=== PATIENT | male | born 1950 | race Caucasian/White ===

== ENCOUNTER → 2020-03-27 | Outpatient (CLI) | payer MEDICARE, OTHER ==
--- NOTE | 2020-03-27 11:41 | PFTRPT ---
Site: [facility], [address] [place] [address], [id number] ID: [id number] Name: ANAHY BECERRA Visit Date: 03/27/2020 Second ID: [id number] Referring Doctor: SEAN JOHNSON DO Reviewing Doctor: Esequiel Madison MD Pearler: Qing Winchester Age: 69 : 1950 Sex: Male Race: Height: 68.00 Inches Weight: 161.00 Lbs BSA: 1.86 Order IDs: [id number] Requested Test(s): <RESP-PFT.DLCO> Diagnosis: J44.9 test meet the ATS standards for acceptability and repeatability. Pt was given four puffs of albuterol for post bronchodilator. Review Status: Not Reviewed Pre-Bronch Post-Bronch Pred Actual %Pred Actual %Chng SPIROMETRY FVC (L) 4.08 3.30 80 3.93 18 FEV1 (L) 2.99 1.16 38 1.39 20 FEV1/FVC (%) 74 35 47 35 1 FEF 25% (L/sec) 6.56 0.98 14 1.36 39 FEF 50% (L/sec) 3.87 0.39 10 0.57 45 FEF 75% (L/sec) 1.06 0.19 17 0.29 54 FEF 25-75% (L/sec) 2.28 0.35 15 0.50 42 FEF Max (L/sec) 7.89 1.70 21 2.70 58 FIVC (L) 2.77 2.52 -9 FIF 50% (L/sec) 4.45 2.50 56 3.15 25 FIF Max (L/sec) 2.55 3.18 24 MVV (L/min) 121 40 33 Expiratory Time (sec) 12.05 15.69 30 Back Extrap Vol (L) 0.03 0.03 -9 Time To FEFmax (sec) 0.123 0.065 -47 LUNG VOLUMES SVC (L) 4.27 3.37 78 IC (L) 3.13 1.83 58 ERV (L) 1.14 1.54 135 TGV (L) 3.49 6.15 176 RV (Pleth) (L) 2.35 4.61 196 TLC (Pleth) (L) 6.62 7.98 120 RV/TLC (Pleth) (%) 36 58 160 DIFFUSION DLCOunc (ml/min/mmHg) 25.24 13.99 55 DLCOcor (ml/min/mmHg) 25.24 14.03 55 DL/VA (ml/min/mmHg/L) 3.81 2.85 74 VA (L) 6.62 4.92 74 BHT (sec) 11.24 IVC (L) 2.87 TLC (SB) (L) 5.07 AIRWAYS RESISTANCE Raw (cmH2O/L/s) 1.45 2.87 198 Gaw (L/s/cmH2O) 1.03 0.35 33 sRaw (cmH2O*s) 4.76 18.12 380 sGaw (1/cmH2O*s) 0.20 0.06 27 BLOOD GASES Hgb (gm/dL) 14.5
== END ==
LOC: M CARPUL 03-13 14:55
PROVIDERS: ATTEND Family Medicine
DX: J44.9 Chronic obstructive pulmonary disease, unspecified (principal)

== ENCOUNTER → 2020-06-24 | Outpatient (CLI) | payer MEDICARE, OTHER ==
--- NOTE | 2020-07-16 11:59 | REP ---
LOW-DOSE LUNG SCREENING CT CLINICAL: High risk factors. COMPARISON: 02/09/2008. FINDINGS: The bilateral lung [place] are well aerated and moderate/early advanced emphysematous changes are noted. No consolidation. No significant nodule or mass. No effusion. Tracheobronchial tree is patent. Mediastinum demonstrates atherosclerotic changes of the thoracic aorta. IMPRESSION: 1. Moderate/early advanced emphysematous disease. 2. No acute nodule or mass. 3. Lung-RADS Category 1. Consider annual low-dose CT evaluation/follow-up. MTDD
== END ==
LOC: M RAD 11:02
PROVIDERS: ATTEND Family Medicine
DX: Z12.2 Encounter for screening for malignant neoplasm of respiratory organs (principal); Z87.891 Personal history of nicotine dependence; J43.9 Emphysema, unspecified

== ENCOUNTER → 2021-09-15 | Outpatient (CLI) | payer MEDICARE, OTHER ==
[2021-09-16 14:33] LABS: FOLATE 19.1 NG/ML
== END ==
LOC: M WUC 11:08
PROVIDERS: ATTEND Nurse Practitioner Family
DX: D75.89 Other specified diseases of blood and blood-forming organs (principal)

== ENCOUNTER → 2021-10-14 | Outpatient (CLI) | payer MEDICARE, OTHER ==
--- NOTE | 2021-10-14 13:43 | REP ---
INDICATION: TOBACCO,DEPEND COMPARISON: 06/24/2020 TECHNIQUE: Axial noncontrast images from the thoracic inlet to the upper abdomen using low-dose lung screening technique (LDCT). FINDINGS: Lung [place] demonstrate moderate emphysematous changes with bronchiectasis. No acute consolidation, suspicious nodule or mass. No effusion. No pneumothorax. Tracheobronchial tree is patent. No obvious adenopathy. Mediastinum again demonstrates atherosclerotic changes to the thoracic aorta and coronary arteries without aortic aneurysm or cardiomegaly. IMPRESSION: Lung-RADS category 1. Management recommendations include annual low-dose CT surveillance. Moderate emphysematous disease. <Electronically signed by Adam Delgado > 10/14/21 [id number]
== END ==
LOC: M RAD 10:49
PROVIDERS: ATTEND Nurse Practitioner Family
DX: Z12.2 Encounter for screening for malignant neoplasm of respiratory organs (principal); J43.9 Emphysema, unspecified; F17.210 Nicotine dependence, cigarettes, uncomplicated

== ENCOUNTER → 2023-01-08 | Outpatient (CLI) | payer MEDICARE, OTHER | LOC: M RAD 10:51 | PROVIDERS: ATTEND Student in an Organized Health Care Education/Training Program | DX: F17.210 Nicotine dependence, cigarettes, uncomplicated (principal) ==

== ENCOUNTER 2023-11-19 10:51 | Day surgery (SDC) | payer MEDICARE, OTHER ==
[~2023-11-19] VITALS: Ht 172.7 cm; Wt 77.4 kg
[~2023-11-19 10:51] MED LIST: ADVA115A INH; ALLO100T PO; ATEN50TA2 PO; ERGO500029 PO; FLUT12AE6 INH; LIDOCAINE 2% 100MG/5ML SDV (FOR ANES.) As Ordered ONE; LORA-243 PO; NS 1,000 ML IV ONE; PROA1AER2 INH; ROSU40TA4 PO; SPIR1CAP INH; VALS1TAB66 PO; VITMTA PO; propofoL 200 MG/20 ML VIAL As Ordered ONE
[2023-11-19 12:25] VITALS: TEMP 97.9
[2023-11-19 12:40] VITALS: BP 145/69; O2SAT 99
== END 2023-11-19 12:59 | disposition home or self-care (01) ==
LOC: M OPP 10:51
PROVIDERS: ATTEND Internal Medicine Gastroenterology
DX: K64.4 Residual hemorrhoidal skin tags (principal); K64.8 Other hemorrhoids; R19.5 Other fecal abnormalities; Z87.891 Personal history of nicotine dependence; Z79.02 Long term (current) use of antithrombotics/antiplatelets; Z79.51 Long term (current) use of inhaled steroids; Z79.811 Long term (current) use of aromatase inhibitors; Z79.899 Other long term (current) drug therapy

== ENCOUNTER → 2024-02-14 | Outpatient (CLI) | payer MEDICARE, OTHER ==
[~2024-02-14] MED LIST changes: -LIDOCAINE 2% 100MG/5ML SDV (FOR ANES.) As Ordered ONE; -NS 1,000 ML IV ONE; -propofoL 200 MG/20 ML VIAL As Ordered ONE
== END ==
LOC: M RAD 12:44
PROVIDERS: ATTEND Physician Assistant
DX: F17.210 Nicotine dependence, cigarettes, uncomplicated (principal)

== ENCOUNTER → 2024-03-01 | Outpatient (REF) | payer MEDICARE, OTHER ==
[~2024-03-01] MED LIST changes: -ROSU40TA4 PO; +ROSU40TA63 PO
== END ==
LOC: M SFHCPLAZ 16:48
PROVIDERS: ATTEND Physician Assistant Medical
DX: B34.9 Viral infection, unspecified (principal)

== ENCOUNTER → 2024-03-17 | Outpatient (CLI) | payer MEDICARE, OTHER | LOC: M RAD 10:26 | PROVIDERS: ATTEND Physician Assistant | DX: Z12.2 Encounter for screening for malignant neoplasm of respiratory organs (principal); F17.210 Nicotine dependence, cigarettes, uncomplicated; R91.1 Solitary pulmonary nodule ==

== ENCOUNTER → 2024-03-27 | Outpatient (CLI) | payer MEDICARE, OTHER | LOC: M PLARAD 09:32 | PROVIDERS: ATTEND Physician Assistant | DX: R91.1 Solitary pulmonary nodule (principal); F17.210 Nicotine dependence, cigarettes, uncomplicated ==

== ENCOUNTER → 2024-04-13 | Outpatient (CLI) | payer MEDICARE, OTHER | LOC: M RAD 13:01 | PROVIDERS: ATTEND Internal Medicine Critical Care Medicine | DX: J44.9 Chronic obstructive pulmonary disease, unspecified (principal) ==

== ENCOUNTER 2024-05-10 06:54 | Day surgery (SDC) | payer MEDICARE, OTHER ==
[~2024-05-10] VITALS: Ht 170.2 cm; Wt 74.7 kg
[~2024-05-10 06:54] MED LIST changes: +FLUT12AE2 INH; +FLUT1BLS8 INH; +LIDOCAINE 2% 100MG/5ML SDV (FOR ANES.) As Ordered ONE; +MULT-90 PO; +ONDANSETRON 4MG 2ML VIAL As Ordered ONE; +ROCURONIUM BROMIDE 50MG/5ML VIAL As Ordered ONE; -ROSU40TA63 PO; +ROSU40TA81 PO; +SUGAMMADEX SODIUM 500 MG/5 ML VIAL (BRIDION) As Ordered ONE; +THERTAB52 PO; +fentaNYL 100 MCG/2 ML INJECTION As Ordered ONE; +propofoL 200 MG/20 ML VIAL As Ordered ONE
[2024-05-10] MEDS: ALBUTEROL SULFATE 2.5MG/0.5ML INH NEB SOLN INH ONE (07:36)
[2024-05-10] MEDS: LIDOCAINE PRES-FREE 2% 10ML AMP INH ONE (07:36)
[2024-05-10] MEDS ORDERED: ESMOLOL INJ 100MG/10ML VIAL As Ordered ONE (08:59)
[2024-05-10] MEDS ORDERED: LACRILUBE (AKWA TEARS) OPHTH OINT 3.5GM As Ordered ONE (09:16)
[2024-05-10] MEDS: CETACAINE SPRAY 5GM As Ordered ONE (10:00)
[2024-05-10] MEDS ORDERED: PHENYLephrine 500MCG 5ML (100MCG/ML) SYRINGE As Ordered ONE (10:04)
[2024-05-10] MEDS ORDERED: ePHEDrine SULFATE 25 MG/5 ML(5MG/ML) SYRINGE As Ordered ONE (10:04)
[2024-05-10] MEDS: EPINEPHrine 1MG/10ML SYRINGE 1.5IN As Ordered ONE (10:49)
[2024-05-10] MEDS: THROMBIN 5,000 UNITS VIAL As Ordered ONE (10:49)
[2024-05-10 11:40] VITALS: BP 133/79; TEMP 97.9; O2SAT 93
== END 2024-05-10 12:20 | disposition home or self-care (01) ==
LOC: M SDC 06:54
PROVIDERS: ATTEND Internal Medicine Critical Care Medicine
DX: J84.10 Pulmonary fibrosis, unspecified (principal); J44.9 Chronic obstructive pulmonary disease, unspecified; I10 Essential (primary) hypertension; E78.00 Pure hypercholesterolemia, unspecified; N40.0 Benign prostatic hyperplasia without lower urinary tract symptoms; Z79.899 Other long term (current) drug therapy; Z79.51 Long term (current) use of inhaled steroids; Z90.89 Acquired absence of other organs; Z87.891 Personal history of nicotine dependence
CPT/HCPCS: 31623; 31624; 31627; 31652; 71045; 76000; 88104; 88108; 88173; 88305; 88313; C1601; J0171; J1100; J1805; J2371; J2405; J3010

== ENCOUNTER → 2024-05-22 | Outpatient (CLI) | payer MEDICARE, OTHER ==
[~2024-05-22] MED LIST changes: -LIDOCAINE 2% 100MG/5ML SDV (FOR ANES.) As Ordered ONE; -ONDANSETRON 4MG 2ML VIAL As Ordered ONE; -ROCURONIUM BROMIDE 50MG/5ML VIAL As Ordered ONE; +ROSU40TA63 PO; -ROSU40TA81 PO; -SUGAMMADEX SODIUM 500 MG/5 ML VIAL (BRIDION) As Ordered ONE; -fentaNYL 100 MCG/2 ML INJECTION As Ordered ONE; -propofoL 200 MG/20 ML VIAL As Ordered ONE
[2024-05-22 12:29] LABS: PLATELET COUNT, AUTOMATED 217 10^3/uL (150-450)
[2024-05-22 12:44] LABS: INR 1.02; PARTIAL THROMBOPLASTIN TIME 22.5 SECONDS (24.8-34.2); PROTHROMBIN TIME 13.1 SECONDS (12.5-14.5)
== END ==
LOC: M LAB 10:57
PROVIDERS: ATTEND Internal Medicine Critical Care Medicine
DX: Z01.812 Encounter for preprocedural laboratory examination (principal); R91.8 Other nonspecific abnormal finding of lung field

== ENCOUNTER → 2024-06-21 | Outpatient (CLI) | payer MEDICARE, OTHER ==
[~2024-06-21] MED LIST changes: +LIDOCAINE 1% MDV 20ML VIAL As Ordered ONE; +MIDAZOLAM INJ 2MG/2ML VIAL As Ordered ONE; +NS 1,000 ML IV SCH; +ONDANSETRON 4MG 2ML VIAL IV PRN; +PERCOCET 5MG/325MG TAB PO PRN; +fentaNYL 100 MCG/2 ML INJECTION As Ordered ONE
[2024-06-21 08:20] VITALS: TEMP 97.3
[2024-06-21 13:00] VITALS: BP 179/96; O2SAT 95
== END ==
LOC: M IRPRO 08:08
PROVIDERS: ATTEND Internal Medicine Critical Care Medicine
DX: R91.8 Other nonspecific abnormal finding of lung field (principal); J95.811 Postprocedural pneumothorax
CPT/HCPCS: 32408; 71045; 88305; 99152; 99153; J2250; J3010

== ENCOUNTER → 2024-08-14 | Outpatient (CLI) | payer MEDICARE, OTHER ==
[~2024-08-14] MED LIST changes: -LIDOCAINE 1% MDV 20ML VIAL As Ordered ONE; -MIDAZOLAM INJ 2MG/2ML VIAL As Ordered ONE; -NS 1,000 ML IV SCH; -ONDANSETRON 4MG 2ML VIAL IV PRN; -PERCOCET 5MG/325MG TAB PO PRN; -ROSU40TA63 PO; +ROSU40TA81 PO; -fentaNYL 100 MCG/2 ML INJECTION As Ordered ONE
== END ==
LOC: M PLAIMG 10:57
PROVIDERS: ATTEND Internal Medicine Critical Care Medicine
DX: J84.9 Interstitial pulmonary disease, unspecified (principal); I70.0 Atherosclerosis of aorta; I25.10 Atherosclerotic heart disease of native coronary artery without angina pectoris; R91.8 Other nonspecific abnormal finding of lung field

== ENCOUNTER → 2024-11-13 | Outpatient (CLI) | payer MEDICARE, OTHER | LOC: M PLAIMG 11:21 | PROVIDERS: ATTEND Internal Medicine Critical Care Medicine | DX: J84.9 Interstitial pulmonary disease, unspecified (principal); R91.1 Solitary pulmonary nodule; J98.11 Atelectasis; J43.9 Emphysema, unspecified ==

== ENCOUNTER → 2025-06-18 | Outpatient (CLI) | payer MEDICARE, OTHER | LOC: M PLAIMG 11:02 | PROVIDERS: ATTEND Internal Medicine Critical Care Medicine | DX: R91.1 Solitary pulmonary nodule (principal); J84.9 Interstitial pulmonary disease, unspecified ==